=== PATIENT | male | born 1980 | race Caucasian/White ===

== ENCOUNTER 2017-02-19 21:36 | Emergency (ER) | payer OTHER ==
--- NOTE | 2017-02-20 00:42 | ED NURSING NOTES ---
Clinical Report - Nurses [facility] [address] [place] [address] 02/19/2017 21:36 Patient: STEFANY MARIE TRIAGE Triage time 2145. --21:49 Hannah Williamson R.N. Triage time 22:47. Acuity: LEVEL 3. Chief Complaint: FEVER and CHILLS and (burning with urination). --22:53 Hina Sheppard R.N. 22:47 02/19/17. BP: 142/116. HR: 90. RR: 18. O2 saturation: 96%. Temp: 102.7 F. Pain level now: 10/22. --22:53 Hina Sheppard R.N. Weight: 90.7 kg stated. Height/Length: 73 inches Per Patient. BMI: 26.4. --22:48 Hina Sheppard R.N. Medications Betamethasone Topical, as needed. ePHEDrine HCl Oral 25mg , PRN (for low BP). Ibuprofen 600mg , 2 x daily. MS Contin Oral 15 mg, 2x a day. 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 Percocet Oral 5/325 mg, 2x a day as needed. Prilosec Oral 40 mg, daily. --22:50 Hina Sheppard R.N. Allergies Penicillins. Definite --22:51 Hina Sheppard R.N. History ( Rapid triage done in waiting room. Pt has had fever x 2 days, last one 102.0 pt having occasional chills. taking tylenol every 3 hours, and took and a "left over cipro"). --21:49 Hannah Wililamson R.N. ( pt in since 2199). --22:24 Hina Sheppard R.N. Arrived by private vehicle. Historian: patient. Accompanied by family. Primary physician (lank). This started last night. ( smelly urine). SOCIAL HX: Never smoker. No alcohol use or drug use. No infectious disease exposure. No known contact with a sick individual. ABUSE ASSESSMENT: No report of abuse. SELF HARM ASSESSMENT: A self harm assessment was performed. The patient answered "no" to the question "Have you recently felt down, depressed, or hopeless?", "Have you noticed less interest or pleasure in doing things?", "Do you have thoughts of harming or killing yourself?", "Are you here because you tried to hurt yourself?", "Have you ever tried to hurt yourself before today?", "Have you recently had thoughts about harming or killing others?" and "Do you have any dangerous items in your possession?". --22:53 Hina Sheppard R.N. PROBLEMS: Cellulitis. Abscess. Infections. Tetanus Status. Immunizations. --22:51 Hina Sheppard R.N. ADDITIONAL SURGERIES: Back Surgery. --22:51 Hina Sheppard R.N. Ureteral Stent. Uriluma stent. --22:52 Hina Sheppard R.N. Interventions ID band on patient. --22:53 Hina Sheppard R.N. PHYSICAL ASSESSMENT To room via wheelchair. GENERAL / NEURO / PSYCH: Alert. Oriented X 4. Appears in no acute distress. HEENT: Pupils equal, round and reactive to light. Mucous membranes are pink. RESPIRATORY: Respirations not labored. Chest nontender. Breath sounds within normal limits. CVS: Normal sinus rhythm noted. Capillary refill less than 2 seconds. Pulses within normal limits. GI / : Abdomen soft and nontender and normal bowel sounds. SKIN: Skin intact. Skin is warm and dry. Skin is slightly diaphoretic. Normal skin turgor. --22:53 Hina Sheppard R.N. NURSING PROGRESS NOTES Two patient identifiers checked. Call light placed in reach. Patient placed in chair. Brakes of chair on. Patient ready for evaluation- chart flagged. --22:54 Hina Sheppard R.N. 23:03 02/19/2017 Site #1 started via IV in the right antecubital space with an 20g angiocath, with aseptic technique and good blood return; one attempt. Blood drawn: rainbow set. Labeled in the presence of the patient and sent to the lab. Saline lock flushed with 10 mL saline. --23:11 Hina Sheppard R.N. 23:14 02/19/2017 Ibuprofen PO Tablets 600 mg given. Allergies verified and confirmed 5 rights. --23:14 Hina Sheppard R.N. 23:45 02/19/2017 Started bag #1 1000 mL IV Fluids IV NS (Saline); bolus of 1000 mL wide open then over 1 hour(s) via site #1. Allergies verified and confirmed 5 rights. IV patency established. IV site checked: no pain, redness, or swelling. IV flushed thoroughly pre- and post-medication administration. --23:54 Hina Sheppard R.N. 23:46 02/19/2017 Started 2 gm of Ceftriaxone IVPB in bag #1 50 mL; over 20 minute(s) via site #1 via IV pump. Allergies verified and confirmed 5 rights. IV patency established. IV site checked: no pain, redness, or swelling. IV flushed thoroughly pre- and post-medication administration. --23:54 Hina Sheppard R.N. 23:47 02/19/2017 Zofran (Ondansetron HCl) IVP 4 mg given over 2 minute(s) via site #1. Allergies verified and confirmed 5 rights. IV patency established. IV site checked: no pain, redness, or swelling. IV flushed thoroughly pre- and post-medication administration. IVP given by RN. --23:55 Hina Sheppard R.N. 23:49 02/19/2017 Morphine IVP 4 mg given over 2 minute(s) via site #1. Allergies verified, confirmed 5 rights and sedative warning given to the patient. IV patency established. IV site checked: no pain, redness, or swelling. IV flushed thoroughly pre- and post-medication administration. IVP given by RN. --23:55 Hina Sheppard R.N. ( pt sitting up in W/C, no distress at this time, will continue to monitor. IVF infusing.). GENERAL / NEURO / PSYCH: Alert. Oriented X 4. RESPIRATORY: No respiratory distress. Breath sounds normal. --23:56 Hina Sheppard R.N. 00:05 02/20/2017 Morphine IVP Response: pain is gone now. Symptoms have improved the patient feels better. --00:56 Hina Sheppard R.N. 00:08 02/20/2017 Ceftriaxone IVPB Discontinued: completed. Total amount infused: 50 mL. IV patency established. IV site checked: no pain, redness, or swelling. IV flushed thoroughly. --00:08 Hina Sheppard R.N. 00:51 02/20/2017 Site #1 removed upon discharge. Catheter intact. Manual pressure and bandage applied. --00:56 Hina Sheppard R.N. 00:51 02/20/2017 IV Fluids IV NS Discontinued: completed upon discharge. Total amount infused: 1000 mL. IV patency established. IV site checked: no pain, redness, or swelling. IV flushed thoroughly. --00:56 Hina Sheppard R.N. Call light placed in reach. --00:58 Hina Sheppard R.N. 00:51 02/20/17. BP: 140/98 taken on the left arm, while lying. HR: 92 (regular and normal rate). RR: 18 (regular). O2 saturation: 99% on room air. Temp: 99.5 F (oral). Pain level now: 0/10. --00:58 Hina Sheppard R.N. DISPOSITION / DISCHARGE Departure time: 50. Condition at departure: improved and stable. No learning barriers present. Discharge instructions provided and reviewed with the patient. Reviewed medication(s) side effects, precautions, dosing and course information. Prescription(s) given to the patient. Patient verbalized understanding. Written instructions provided in Bur[place]ian. No activity restrictions. The patient was discharged home and accompanied by spouse. He left the Emergency Department in a wheelchair and via private vehicle. Spouse driving. --00:58 Hina Sheppard R.N. Locked/Released at 02/20/2017 0:59 by Hina Sheppard R.N.
--- NOTE | 2017-02-20 00:42 | ED CLINICAL REPORT ---
Clinical Report - Physicians/Mid Levels [facility] [address] [place] [address] 02/19/2017 21:36 Patient: STEFANY MARIE Time Seen: 2232; initial patient contact. Arrived- By private vehicle. Historian- patient. HISTORY OF PRESENT ILLNESS Chief Complaint: FEVER. This started past 2 days and is still present and worsening. Fever was gradual in onset and has been intermittent but not measured. It is not gone now. The patient has had fatigue. No altered mental status, skin breakdown noted or rash or joint pain. Additional history - No known contact with a sick individual. He has a Lozoya catheter. paraplegic with incontinence. describes rigors. Similar symptoms previously: Once. Recent medical care: Not recently seen/assessed. REVIEW OF SYSTEMS All systems otherwise negative, except as recorded above. PAST HISTORY See nurses notes. SOCIAL HISTORY Never smoker. No alcohol use or drug use. No recent travel. Is a local resident. PHYSICAL EXAM Appearance: Alert. No acute distress. (non-toxic appearance however with rigors.). Neck: Normal inspection. Neck supple. No meningeal signs. CVS: Normal heart rate and rhythm. Heart sounds normal. Pulses normal. Respiratory: No respiratory distress. Breath sounds normal. Chest nontender. No rales, rhonchi or wheezes. Abdomen: Soft and nontender. Bowel sounds normal. Skin: Skin warm and dry. Normal skin color. No rash. Normal skin turgor. Extremities: Extremities exhibit normal ROM. Extremities nontender. LABS, X-RAYS, AND EKG Laboratory Tests: UA-Culture if indicated: (LADONNA: 02/19/2017 22:53) ( MsgRcvd 02/19/2017 23:11) Final results Test Result Flag Units (Reference) URINE COLOR YELLOW URINE APPEARANCE HAZY URINE GLUCOSE NEGATIVE (NEGATIVE) URINE BILIRUBIN NEGATIVE (NEGATIVE) URINE KETONE NEGATIVE (NEGATIVE) URINE SPECIFIC GRAVITY <= 1.005 L (1.010-1.030) URINE PH 6.5 (5.0-8.0) URINE PROTEIN TRACE (NEGATIVE) URINE UROBILINOGEN 0.2 EU/dL (0.2-1.0) URINE NITRITE POSITIVE (NEGATIVE) URINE BLOOD 1+ (NEGATIVE) URINE LEUK ESTERASE POSITIVE (NEGATIVE) URINE RBC 1-3 rbc/hpf (0-1) URINE WBC >100 wbc/hpf (0-1) URINE EPITHELIAL CELLS 0-1 EPI/hpf (0-5) URINE BACTERIA MANY (4+) (NONE SEEN) URINE COMMENT CULTURE INDICATED URINE CULTURES ARE SET-UP BASED ON THE FOLLOWING CRITERIA:POSITIVE NITRITEPOSITIVE LEUKOCYTE ESTERASEGREATER THAN 10 WHITE BLOOD CELLSMODERATE (2+) OR GREATER BACTERIA CBC w Diff: (LADONNA: 02/19/2017 23:03) ( [facility] 02/19/2017 23:18) Final results Test Result Flag Units (Reference) WHITE BLOOD COUNT 8.3 K/uL (4.5-11.5) RED BLOOD COUNT 4.06 L M/uL (4.50-5.90) HEMOGLOBIN 12.4 L gm/dL (13.5-17.5) HEMATOCRIT 37.3 L % (41.0-53.0) MEAN CELL VOLUME 92 fL (80-100) MEAN CORPUSCULAR HGB 31 pg (26-34) MEAN CORPUSCULAR HGB CONC 33 g/dL (31-37) RED CELL DISTRIBUTION WIDTH 12.8 % (11.6-14.8) PLATELET COUNT 168 K/uL (150-400) LYMPH % 9.1 L % (25-40) MONO % 4.8 % (3-14) GRANULOCYTE % 86.1 Lactate, Serum: (LADONNA: 02/19/2017 23:03) ( [facility] 02/19/2017 23:33) Final results Test Result Flag Units (Reference) LACTIC ACID 2.0 mmol/L (0.4-2.0) CMP: (LADONNA: 02/19/2017 23:03) ( [facility] 02/19/2017 23:29) Final results Test Result Flag Units (Reference) GLUCOSE 158 H mg/dL (70-110) BUN 12 mg/dL (7-18) CREATININE 0.9 mg/dL (0.6-1.3) Estimated GFR >60 mL/min Estimated GFR- >60 mL/min Note: Persistent reduction over 3 months in eGFR<60 mL/min/1.73 m2 defines CKD. Patients with eGFR values>=60 mL/min/1.73 m2 may also have CKD if evidence ofpersistent proteinuria. Additional information may be foundat www.kidney.org. SODIUM 140 mmol/L (136-145) POTASSIUM 4.0 mmol/L (3.5-5.1) CHLORIDE 102 mmol/L (98-107) CARBON DIOXIDE 27 mmol/L (21-32) CALCIUM 8.6 mg/dL (8.5-10.1) TOTAL PROTEIN 7.2 g/dL (6.4-8.2) ALBUMIN 3.6 g/dL (3.3-5.0) BILIRUBIN, TOTAL 0.5 mg/dL (0.0-1.0) ALKALINE PHOSPHATASE 89 U/L (46-116) AST (SGOT) 14 L U/L (15-37) ALT (SGPT) 22 U/L (12-78) . PROGRESS AND PROCEDURES Course of Care: he patient is a 36-year-old male with a past medical history significant for paraplegia and urinary tract infection history presenting for evaluation of fever. Patient is describing rigors on history. Patient also with rigors on examination. Patient will be evaluated for potential causes for the rigors. Patient states that he has had this before. Patient states that they're usually caused by urinary tract infection. The patient states that he does not need to be admitted at this time but will likely need antibiotics. Patient is also declined the offer of a chest x-ray for evaluation of potential pulmonary causes of fever. Workup was significant for UTI. The rest of the patient's work up was unremarkable. Had a discussion with patient and he states he feels much better. Would like to go home. Option provided to be monitored in the hospital however he states since he is feeling better would like to get a chance for outpatient management. Patient understands to return immediately for any worsening. FIrst dose abx given in the ED. discussed with patient his work up in the emergency department including diagnosis, home care, follow up, and return precuations. all questions answered. the patient expressed understanding of these instructions and was agreeable to them. Disposition: Discharged. Condition: good. CLINICAL IMPRESSION Acute febrile illness. Acute urinary tract infection with cystitis and hematuria associated with indwelling catheter. INSTRUCTIONS Warnings: GENERAL WARNINGS: Return or contact your physician immediately if your condition worsens or changes unexpectedly, if not improving as expected, or if other problems arise. Specifically return if pain, vomiting, bleeding, breathing difficulty or fever. Your Current Medications: CONTINUE TAKING THE FOLLOWING MEDICATIONS: Betamethasone Topical* : prn. ePHEDrine HCl Oral : 25mg PRN, for low BP. Ibuprofen : 600mg 2 x daily. MS Contin Oral : 15 mg 2x a day. 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 Percocet Oral : 5/325 mg 2x a day, prn. Prilosec Oral : 40 mg daily. Prescription Medications: Bactrim DS: take 1 tablet orally every 12 hours for 10 days. No refill. Substitution is not permissible. (substitution allowed. disp 20 tabs.) Follow-up: Return to the emergency department as needed. Follow up with your doctor in two days. Reason for referral: recheck today's concerns. Summary of care provided to patient via paper. Screening today revealed the patient's blood pressure to be in the normal range. The patient should follow up with a primary care provider for blood pressure management. Understanding of the discharge instructions verbalized by patient. (Electronically signed by Salbador Ho Dr. 02/22/2017 15:50)
--- NOTE | 2017-02-20 00:42 | ED ORDER SUMMARY ---
..... Patient: STEFANY MARIE OrderSheet [facility] VisitID: [id number] [place] [address] 36y, M Registration Date/Time: 02/19/2017 ORDER SHEET Weight: 90.7 kg (stated) Allergies: Penicillins GENERAL ORDERS: Chest 2V Urgent (22:30 02/19/2017 Tio Nuñez) (Ack 22:33 [facility] Quality Assurance/R&D Lab Technician) (Cancelled: Patient [id number] CBradburn R.N.) CBC w Diff Urgent (22:32 02/19/2017 Tio Nuñez) (Ack 22:33 [facility] Quality Assurance/R&D Lab Technician) (23:10 Ernesto R.N.) CMP Urgent (22:32 02/19/2017 Tio Nuñez) (Ack 22:33 [facility] Quality Assurance/R&D Lab Technician) (23:10 Ángelburn R.N.) UA-Culture if indicated Urgent (22:32 02/19/2017 Tio Nuñez) (Ack 22:33 [facility] Quality Assurance/R&D Lab Technician) (23:10 Ernesto R.N.) Lactate, Serum Urgent (22:32 02/19/2017 Tio Nuñez) (Ack 22:33 [facility] Quality Assurance/R&D Lab Technician) (23:10 CBradburn R.N.) Pulse oximeter (22:32 02/19/2017 Tio Nuñez) (Ack 22:33 [facility] Quality Assurance/R&D Lab Technician) (23:10 CBradburn R.N.) MEDICATION ORDERS: Ibuprofen PO 600 mg (NOW) (23:11 02/19/2017 Ernesto R.N. verbal order read back to Tio Nuñez) (Ack 23:11 MARIOradmary R.N.) (23:14 MARIOradburn R.N.) IV FLUIDS: IV NS : initial bolus 1000 mL (1000 mL/hr), then none - for X1 (NOW) (23:20 02/19/2017 Tio Nuñez) (Ack 23:40 CBradburn R.N.) (23:54 CBradburn R.N.) states keflex did not cause a reaction Ceftriaxone IV 2 gm/50mL (NOW) (23:20 02/19/2017 Tio Nuñez) (Ack 23:40 CBradburn R.N.) (23:54 CBradburn R.N.) states keflex did not cause a reaction Zofran IV 4 mg (NOW) (23:20 02/19/2017 Tio Nuñez) (Ack 23:40 CBradburn R.N.) (23:55 CBradburn R.N.) states keflex did not cause a reaction Morphine IV 4 mg (HIGH ALERT MEDICATION, NOW) (23:21 02/19/2017 Tio Nuñez) (Ack 23:40 CBradburn R.N.) (23:55 CBradburn R.N.) states keflex did not cause a reaction ORDER SHEET NOTES: [Electronically signed by Hina Sheppard R.N. (00:59 02/20/2017)] [Electronically signed by Salbador Ho Dr. (15:50 02/22/2017)] [Electronically locked/signed by Hina Sheppard R.N. (00:59 02/20/2017)]
--- NOTE | 2017-02-20 00:42 | ED ORDER SUMMARY ---
..... Patient: STEFANY MARIE OrderSheet VisitID: [id number] [place] [address] 36y, M Registration Date/Time: 02/19/2017 ORDER SHEET Weight: 90.7 kg (stated) Allergies: Penicillins GENERAL ORDERS: Chest 2V Urgent (22:30 02/19/2017 Tio Nuñez) (Ack 22:33 [facility] Room Service Runner) (Cancelled: Patient [id number] CBradburn R.N.) CBC w Diff Urgent (22:32 02/19/2017 Tio Nuñez) (Ack 22:33 [facility] Room Service Runner) (23:10 Ernesto R.N.) CMP Urgent (22:32 02/19/2017 Tio Nuñez) (Ack 22:33 [facility] Room Service Runner) (23:10 Ángelburn R.N.) UA-Culture if indicated Urgent (22:32 02/19/2017 Tio Nuñez) (Ack 22:33 [facility] Room Service Runner) (23:10 Ernesto R.N.) Lactate, Serum Urgent (22:32 02/19/2017 Tio Nuñez) (Ack 22:33 [facility] Room Service Runner) (23:10 CBradburn R.N.) Pulse oximeter (22:32 02/19/2017 Tio Nuñez) (Ack 22:33 [facility] Room Service Runner) (23:10 CBradburn R.N.) MEDICATION ORDERS: Ibuprofen PO 600 mg (NOW) (23:11 02/19/2017 Ernesto R.N. verbal order read back to Tio Nuñez) (Ack 23:11 MARIOradmary R.N.) (23:14 MARIOradburn R.N.) IV FLUIDS: IV NS : initial bolus 1000 mL (1000 mL/hr), then none - for X1 (NOW) (23:20 02/19/2017 Tio Nuñez) (Ack 23:40 CBradburn R.N.) (23:54 CBradburn R.N.) states keflex did not cause a reaction Ceftriaxone IV 2 gm/50mL (NOW) (23:20 02/19/2017 Tio Nñuez) (Ack 23:40 CBradburn R.N.) (23:54 CBradburn R.N.) states keflex did not cause a reaction Zofran IV 4 mg (NOW) (23:20 02/19/2017 Tio Nuñez) (Ack 23:40 CBradburn R.N.) (23:55 CBradburn R.N.) states keflex did not cause a reaction Morphine IV 4 mg (HIGH ALERT MEDICATION, NOW) (23:21 02/19/2017 Tio Nuñez) (Ack 23:40 CBradburn R.N.) (23:55 CBradburn R.N.) states keflex did not cause a reaction ORDER SHEET NOTES: [Electronically signed by Hina Sheppard R.N. (00:59 02/20/2017)] [Electronically signed by Salbador Ho Dr. (15:50 02/22/2017)] [Electronically locked/signed by Hina Sheppard R.N. (00:59 02/20/2017)]
--- NOTE | 2017-02-22 15:50 | ED DISCHARGE INSTRUCTIONS ---
Patient: STEFANY MARIE General Instructions [facility] VisitID: [id number] [place] [address] 36y, M Registration Date/Time: 02/19/2017 Acute febrile illness. Acute urinary tract infection with cystitis and hematuria associated with indwelling catheter. INSTRUCTIONS Warnings: GENERAL WARNINGS: Return or contact your physician immediately if your condition worsens or changes unexpectedly, if not improving as expected, or if other problems arise. Specifically return if pain, vomiting, bleeding, breathing difficulty or fever. Your Current Medications: CONTINUE TAKING THE FOLLOWING MEDICATIONS: Betamethasone Topical* : prn. ePHEDrine HCl Oral : 25mg PRN, for low BP. Ibuprofen : 600mg 2 x daily. MS Contin Oral : 15 mg 2x a day. 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 Percocet Oral : 5/325 mg 2x a day, prn. Prilosec Oral : 40 mg daily. Prescription Medications: Bactrim DS: take 1 tablet orally every 12 hours for 10 days. No refill. Substitution is not permissible. (substitution allowed. disp 20 tabs.) Follow-up: Return to the emergency department as needed. Follow up with your doctor in two days. Reason for referral: recheck today's concerns. Summary of care provided to patient via paper. Screening today revealed the patient's blood pressure to be in the normal range. The patient should follow up with a primary care provider for blood pressure management. Understanding of the discharge instructions verbalized by patient. ADDITIONAL INFORMATION Bladder Infection,Male (Adult) A bladder infection ("cystitis" or "UTI") usually causes a constant urge to urinate, and a burning when passing urine. Urine may be cloudy, smelly or dark. There may be also be pain in the lower abdomen. Cystitis in males is not common. It may be caused by a partial blockage in the urinary system that keeps the bladder from emptying completely. This is most often related to an enlarged prostate gland. Home Care: Drink lots of fluids (at least 6-8 glasses a day). This will flush the bacteria out of your bladder. Avoid sexual intercourse until your symptoms are gone. Avoid caffeine, alcohol, and spicy foods. They could irritate the bladder. A bladder infection is treated with antibiotics. You may also be given Pyridium (generic - phenazopyridine) to reduce burning with urination. This will cause urine to become a bright orange color, which can stain clothing. Follow Up with your doctor or this facility if ALL symptoms have not cleared within five days. It is important to keep your follow up appointment to discuss with your doctor the need for further tests of the urinary tract. Get Prompt Medical Attention if any of the following occur: Fever of 100.4F (38C) or higher, or as directed by your healthcare provider No improvement by the third day of treatment Increasing back or abdominal pain Repeated vomiting; unable to keep medicine down Weakness, dizziness or fainting Sulfamethoxazole, Trimethoprim Oral tablet What is this medicine? SULFAMETHOXAZOLE; TRIMETHOPRIM or SMX-TMP (suhl fuh meth OK aixa zohl; trye METH oh prim) is a combination of a sulfonamide antibiotic and a second antibiotic, trimethoprim. It is used to treat or prevent certain kinds of bacterial infections. It will not work for colds, flu, or other viral infections. How should I use this medicine? Take this medicine by mouth with a full glass of water. Follow the directions on the prescription label. Take your medicine at regular intervals. Do not take it more often than directed. Do not skip doses or stop your medicine early. Talk to your stamp pad maker regarding the use of this medicine in children. Special care may be needed. This medicine has been used in children as young as 2 months of age. What side effects may I notice from receiving this medicine? Side effects that you should report to your doctor or health care rep as soon as possible: allergic reactions like skin rash or hives, swelling of the face, lips, or tongue breathing problems fever or chills, sore throat irregular heartbeat, chest pain joint or muscle pain pain or difficulty passing urine red pinpoint spots on skin redness, blistering, peeling or loosening of the skin, including inside the mouth unusual bleeding or bruising unusually weak or tired yellowing of the eyes or skin Side effects that usually do not require medical attention (report to your doctor or health care rep if they continue or are bothersome): diarrhea dizziness headache loss of appetite nausea, vomiting nervousness What may interact with this medicine? Do not take this medicine with any of the following medications: aminobenzoate potassium dofetilide metronidazole This medicine may also interact with the following medications: ROCHELLE inhibitors like benazepril, enalapril, lisinopril, and ramipril cyclosporine digoxin diuretics indomethacin medicines for diabetes methenamine methotrexate phenytoin potassium supplements pyrimethamine sulfinpyrazone tricyclic antidepressants warfarin What if I miss a dose? If you miss a dose, take it as soon as you can. If it is almost time for your next dose, take only that dose. Do not take double or extra doses. Where should I keep my medicine? Keep out of the reach of children. Store at room temperature between 20 to 25 degrees C (68 to 77 degrees F). Protect from light. Throw away any unused medicine after the expiration date. What should I tell my health care provider before I take this medicine? They need to know if you have any of these conditions: anemia asthma being treated with anticonvulsants if you frequently drink alcohol containing drinks kidney disease liver disease low level of folic acid or [id number] dehydrogenase poor nutrition or malabsorption porphyria severe allergies thyroid disorder an unusual or allergic reaction to sulfamethoxazole, trimethoprim, sulfa drugs, other medicines, foods, dyes, or preservatives or trying to get breast-feeding What should I watch for while using this medicine? Tell your doctor or health care rep if your symptoms do not improve. Drink several glasses of water a day to reduce the risk of kidney problems. Do not treat diarrhea with over the counter products. Contact your doctor if you have diarrhea that lasts more than 2 days or if it is severe and watery. This medicine can make you more sensitive to the sun. Keep out of the sun. If you cannot avoid being in the sun, wear protective clothing and use a sunscreen. Do not use sun lamps or tanning beds/booths. You have been given the following additional information: Bladder Infection, Male (Adult) Sulfamethoxazole, Trimethoprim Oral tablet (Electronically signed by Salbador Ho Dr. 02/22/2017 15:50)
--- NOTE | 2017-02-22 15:50 | ED DISCHARGE INSTRUCTIONS ---
Patient: STEFANY MARIE General Instructions [facility] VisitID: [id number] [place] [address] 36y, M Registration Date/Time: 02/19/2017 Acute febrile illness. Acute urinary tract infection with cystitis and hematuria associated with indwelling catheter. INSTRUCTIONS Warnings: GENERAL WARNINGS: Return or contact your physician immediately if your condition worsens or changes unexpectedly, if not improving as expected, or if other problems arise. Specifically return if pain, vomiting, bleeding, breathing difficulty or fever. Your Current Medications: CONTINUE TAKING THE FOLLOWING MEDICATIONS: Betamethasone Topical* : prn. ePHEDrine HCl Oral : 25mg PRN, for low BP. Ibuprofen : 600mg 2 x daily. MS Contin Oral : 15 mg 2x a day. 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 Percocet Oral : 5/325 mg 2x a day, prn. Prilosec Oral : 40 mg daily. Prescription Medications: Bactrim DS: take 1 tablet orally every 12 hours for 10 days. No refill. Substitution is not permissible. (substitution allowed. disp 20 tabs.) Follow-up: Return to the emergency department as needed. Follow up with your doctor in two days. Reason for referral: recheck today's concerns. Summary of care provided to patient via paper. Screening today revealed the patient's blood pressure to be in the normal range. The patient should follow up with a primary care provider for blood pressure management. Understanding of the discharge instructions verbalized by patient. ADDITIONAL INFORMATION Bladder Infection,Male (Adult) A bladder infection ("cystitis" or "UTI") usually causes a constant urge to urinate, and a burning when passing urine. Urine may be cloudy, smelly or dark. There may be also be pain in the lower abdomen. Cystitis in males is not common. It may be caused by a partial blockage in the urinary system that keeps the bladder from emptying completely. This is most often related to an enlarged prostate gland. Home Care: Drink lots of fluids (at least 6-8 glasses a day). This will flush the bacteria out of your bladder. Avoid sexual intercourse until your symptoms are gone. Avoid caffeine, alcohol, and spicy foods. They could irritate the bladder. A bladder infection is treated with antibiotics. You may also be given Pyridium (generic - phenazopyridine) to reduce burning with urination. This will cause urine to become a bright orange color, which can stain clothing. Follow Up with your doctor or this facility if ALL symptoms have not cleared within five days. It is important to keep your follow up appointment to discuss with your doctor the need for further tests of the urinary tract. Get Prompt Medical Attention if any of the following occur: Fever of 100.4F (38C) or higher, or as directed by your healthcare provider No improvement by the third day of treatment Increasing back or abdominal pain Repeated vomiting; unable to keep medicine down Weakness, dizziness or fainting Sulfamethoxazole, Trimethoprim Oral tablet What is this medicine? SULFAMETHOXAZOLE; TRIMETHOPRIM or SMX-TMP (suhl fuh meth OK aixa zohl; trye METH oh prim) is a combination of a sulfonamide antibiotic and a second antibiotic, trimethoprim. It is used to treat or prevent certain kinds of bacterial infections. It will not work for colds, flu, or other viral infections. How should I use this medicine? Take this medicine by mouth with a full glass of water. Follow the directions on the prescription label. Take your medicine at regular intervals. Do not take it more often than directed. Do not skip doses or stop your medicine early. Talk to your box feeder regarding the use of this medicine in children. Special care may be needed. This medicine has been used in children as young as 2 months of age. What side effects may I notice from receiving this medicine? Side effects that you should report to your doctor or health acute care certified nursing assistant as soon as possible: allergic reactions like skin rash or hives, swelling of the face, lips, or tongue breathing problems fever or chills, sore throat irregular heartbeat, chest pain joint or muscle pain pain or difficulty passing urine red pinpoint spots on skin redness, blistering, peeling or loosening of the skin, including inside the mouth unusual bleeding or bruising unusually weak or tired yellowing of the eyes or skin Side effects that usually do not require medical attention (report to your doctor or health acute care certified nursing assistant if they continue or are bothersome): diarrhea dizziness headache loss of appetite nausea, vomiting nervousness What may interact with this medicine? Do not take this medicine with any of the following medications: aminobenzoate potassium dofetilide metronidazole This medicine may also interact with the following medications: ROCHELLE inhibitors like benazepril, enalapril, lisinopril, and ramipril cyclosporine digoxin diuretics indomethacin medicines for diabetes methenamine methotrexate phenytoin potassium supplements pyrimethamine sulfinpyrazone tricyclic antidepressants warfarin What if I miss a dose? If you miss a dose, take it as soon as you can. If it is almost time for your next dose, take only that dose. Do not take double or extra doses. Where should I keep my medicine? Keep out of the reach of children. Store at room temperature between 20 to 25 degrees C (68 to 77 degrees F). Protect from light. Throw away any unused medicine after the expiration date. What should I tell my health care provider before I take this medicine? They need to know if you have any of these conditions: anemia asthma being treated with anticonvulsants if you frequently drink alcohol containing drinks kidney disease liver disease low level of folic acid or jcydmuw-[id number]-afghilohg dehydrogenase poor nutrition or malabsorption porphyria severe allergies thyroid disorder an unusual or allergic reaction to sulfamethoxazole, trimethoprim, sulfa drugs, other medicines, foods, dyes, or preservatives or trying to get breast-feeding What should I watch for while using this medicine? Tell your doctor or health acute care certified nursing assistant if your symptoms do not improve. Drink several glasses of water a day to reduce the risk of kidney problems. Do not treat diarrhea with over the counter products. Contact your doctor if you have diarrhea that lasts more than 2 days or if it is severe and watery. This medicine can make you more sensitive to the sun. Keep out of the sun. If you cannot avoid being in the sun, wear protective clothing and use a sunscreen. Do not use sun lamps or tanning beds/booths. You have been given the following additional information: Bladder Infection, Male (Adult) Sulfamethoxazole, Trimethoprim Oral tablet (Electronically signed by Salbador Ho Dr. 02/22/2017 15:50)
--- NOTE | 2017-02-22 15:51 | ED MAR SUMMARY ---
..... Medication Administration Record [address] [place] [address] Patient: STEFANY MARIE Visit ID: [id number] 36y, M Weight: 90.7 kg Height/Length: 73 in BMI: 26.4 ALLERGIES: Penicillins Given 23:14 02/19/2017 Hina Sheppard R.N. Medication Administered: IBUPROFEN [PO], Dose: 600 mg Tablets PO. Medication Ordered: Ibuprofen PO 600 mg (NOW). Start 23:45 02/19/2017 Hina Sheppard R.N., Stop 00:51 02/20/2017 Hina Sheppard R.N. Medication Administered: IV NS (SALINE), Dose: IV Fluids over 1 hour(s), Bolus: 1000 mL wide open, Dispensed: 1000 mL bag, Site: #1 right AC. Medication Ordered: IV NS : initial bolus 1000 mL (1000 mL/hr), then none - for X1 (NOW). Start 23:46 02/19/2017 Hina Sheppard R.N., Stop 00:08 02/20/2017 Hina Sheppard R.N. Medication Administered: CEFTRIAXONE [IVPB], Dose: 2 gm IVPB over 20 minute(s), Dispensed: 50 mL bag, Site: #1 right AC. Medication Ordered: Ceftriaxone IV 2 gm/50mL (NOW). Given 23:47 02/19/2017 Hina Sheppard R.N. Medication Administered: ZOFRAN [IVP] (ONDANSETRON HCL), Dose: 4 mg IVP over 2 minute(s), Site: #1 right AC. Medication Ordered: Zofran IV 4 mg (NOW). Given 23:49 02/19/2017 Hina Sheppard R.N. Medication Administered: MORPHINE [IVP], Dose: 4 mg IVP over 2 minute(s), Site: #1 right AC. Medication Ordered: Morphine IV 4 mg (HIGH ALERT MEDICATION, NOW).
--- NOTE | 2017-02-22 15:51 | ED MED RECONCILIATION SUMMARY ---
Patient: STEFANY MARIE Medication Reconciliation Report [facility] VisitID: [id number] [address] [place] [address] 36y, M Registration Date/Time: 02/19/2017 Weight: 90.7 kg Height/Length: 73 in. BMI: 26.4 ALLERGIES: Penicillins The patient's Home Medications are listed below: CONTINUE TAKING THE FOLLOWING MEDICATIONS: Betamethasone Topical ePHEDrine HCl Oral 25mg , PRN, for low BP Ibuprofen 600mg , 2 x daily MS Contin Oral 15 mg, 2x a day NIFEdipine Oral 20 mg, daily, autonomic disreflexia Percocet Oral 5/325 mg, 2x a day Prilosec Oral 40 mg, daily The source(s) of the original Home Medication information: Not obtained. The following Medications were given to the patient in the Emergency Department: Ibuprofen [PO] PO 600 mg, administered: 02/19/2017 11:14:00 PM IV NS IV Fluids bolus 1000 mL wide open, administered: 02/19/2017 11:45:00 PM Ceftriaxone [IVPB] IVPB bolus 0, then 2 gm, administered: 02/19/2017 11:46:00 PM Zofran [IVP] IVP 4 mg, administered: 02/19/2017 11:47:00 PM Morphine [IVP] IVP 4 mg, administered: 02/19/2017 11:49:00 PM The following Medications were prescribed to the patient: Bactrim DS: take 1 tablet orally every 12 hours for 10 days. No refill. Substitution is not permissible.(substitution allowed. disp 20 tabs.) -- Salbador Ho Dr.
--- NOTE | 2017-02-22 15:51 | ED MAR SUMMARY ---
..... Medication Administration Record [facility] [address] [place] [address] Patient: STEFANY MARIE Visit ID: [id number] 36y, M Weight: 90.7 kg Height/Length: 73 in BMI: 26.4 ALLERGIES: Penicillins Given 23:14 02/19/2017 Hina Sheppard R.N. Medication Administered: IBUPROFEN [PO], Dose: 600 mg Tablets PO. Medication Ordered: Ibuprofen PO 600 mg (NOW). Start 23:45 02/19/2017 Hina Sheppard R.N., Stop 00:51 02/20/2017 Hina Sheppard R.N. Medication Administered: IV NS (SALINE), Dose: IV Fluids over 1 hour(s), Bolus: 1000 mL wide open, Dispensed: 1000 mL bag, Site: #1 right AC. Medication Ordered: IV NS : initial bolus 1000 mL (1000 mL/hr), then none - for X1 (NOW). Start 23:46 02/19/2017 Hina Sheppard R.N., Stop 00:08 02/20/2017 Hina Sheppard R.N. Medication Administered: CEFTRIAXONE [IVPB], Dose: 2 gm IVPB over 20 minute(s), Dispensed: 50 mL bag, Site: #1 right AC. Medication Ordered: Ceftriaxone IV 2 gm/50mL (NOW). Given 23:47 02/19/2017 Hina Sheppard R.N. Medication Administered: ZOFRAN [IVP] (ONDANSETRON HCL), Dose: 4 mg IVP over 2 minute(s), Site: #1 right AC. Medication Ordered: Zofran IV 4 mg (NOW). Given 23:49 02/19/2017 Hina Sheppard R.N. Medication Administered: MORPHINE [IVP], Dose: 4 mg IVP over 2 minute(s), Site: #1 right AC. Medication Ordered: Morphine IV 4 mg (HIGH ALERT MEDICATION, NOW).
--- NOTE | 2017-02-22 15:51 | ED MED RECONCILIATION SUMMARY ---
Patient: STEFANY MARIE Medication Reconciliation Report [facility] VisitID: [id number] [address] [place] [address] 36y, M Registration Date/Time: 02/19/2017 Weight: 90.7 kg Height/Length: 73 in. BMI: 26.4 ALLERGIES: Penicillins The patient's Home Medications are listed below: CONTINUE TAKING THE FOLLOWING MEDICATIONS: Betamethasone Topical ePHEDrine HCl Oral 25mg , PRN, for low BP Ibuprofen 600mg , 2 x daily MS Contin Oral 15 mg, 2x a day NIFEdipine Oral 20 mg, daily, autonomic disreflexia Percocet Oral 5/325 mg, 2x a day Prilosec Oral 40 mg, daily The source(s) of the original Home Medication information: Not obtained. The following Medications were given to the patient in the Emergency Department: Ibuprofen [PO] PO 600 mg, administered: 02/19/2017 11:14:00 PM IV NS IV Fluids bolus 1000 mL wide open, administered: 02/19/2017 11:45:00 PM Ceftriaxone [IVPB] IVPB bolus 0, then 2 gm, administered: 02/19/2017 11:46:00 PM Zofran [IVP] IVP 4 mg, administered: 02/19/2017 11:47:00 PM Morphine [IVP] IVP 4 mg, administered: 02/19/2017 11:49:00 PM The following Medications were prescribed to the patient: Bactrim DS: take 1 tablet orally every 12 hours for 10 days. No refill. Substitution is not permissible.(substitution allowed. disp 20 tabs.) -- Salbador Ho Dr.
== END 2017-02-20 00:55 | disposition home or self-care (01) ==
LOC: ED SRH 21:36
DX: T83.511A Infection and inflammatory reaction due to indwelling urethral catheter, initial encounter (principal); N30.00 Acute cystitis without hematuria; R50.9 Fever, unspecified
CPT/HCPCS: 90004; 90100; 90469; 92031; 95059